=== PATIENT | male | born 1945 | race Caucasian/White ===

== ENCOUNTER 2022-03-26 04:06 | Inpatient (IN) | payer MEDICARE, OTHER ==
[~2022-03-26] VITALS: Ht 170.2 cm; Wt 76.7 kg
[2022-03-26] MEDS ORDERED: FUROSEMIDE 40MG/4ML VIAL IV ONE (04:30)
[2022-03-26 04:58] LABS: BASOPHILS % 0.7 % (0.0-2.0); HEMATOCRIT. 27.6 % (42.0-52.0); HEMOGLOBIN. 9.2 g/dL (14.0-18.0); LYMPHOCYTES % 9.2 % (20.0-50.0); MEAN CORPUSCULAR HEMOGLOBIN 28.1 pg (28.0-32.0); MEAN CORPUSCULAR VOLUME 84.2 fL (80.0-94.0); MEAN PLATELET VOLUME 8.9 fl (7.4-10.4); NEUTROPHILS % 78.1 % (40.0-76.0); PLATELET 187 x1000/uL (130-400); RED BLOOD CELL COUNT 3.28 mill/uL (4.7-6.1); RED CELL DISTRIBUTION WIDTH 14.8 % (11.6-14.6)
[2022-03-26 05:07] LABS: CHLORIDE 109 mEq/L (98-107)
[2022-03-26 10:30] VITALS: BP 155/6
[2022-03-26] MEDS ORDERED: DEXTROSE 50% WATER 50ML SYRINGE IV PRN (11:15)
[2022-03-26] MEDS ORDERED: ACETAMINOPHEN 325MG TABLET PO PRN (11:15)
[2022-03-26] MEDS ORDERED: LOSARTAN POTASSIUM 25 MG TABLET PO SCH (11:15)
[2022-03-26] MEDS ORDERED: ONDANSETRON HCL 4MG/2ML INJ IV PRN (11:15)
[2022-03-26] MEDS ORDERED: MAGNESIUM/ALUMINUM HYDROXIDE/SIMETHICONE 30ML UDC PO PRN (11:15)
[2022-03-26] MEDS ORDERED: IPRATROPIUM/ALBUTEROL 0.5-3(2.5)MG/3ML NEB HHN PRN (11:15)
[2022-03-26] MEDS ORDERED: DIPHENHYDRAMINE 50MG/ML VIAL IV PRN (11:15)
[2022-03-26 12:00] VITALS: BP 155/61
[2022-03-26] MEDS ORDERED: ENOXAPARIN 40MG/0.4ML SYR SUBCUT SCH (12:00)
[2022-03-26] MEDS: BLOOD SUGAR DIAGNOSTIC STRIP TEST SCH ×3 (12:59→21:27)
[2022-03-26] MEDS: INSULIN LISPRO 100 UNITS/ML SUBCUT SCH ×3 (12:59→21:27)
[2022-03-26] MEDS: FUROSEMIDE 40MG/4ML VIAL IVP SCH ×2 (13:15→17:13)
[2022-03-26] MEDS: SODIUM CHLORIDE 0.9% INJ 3ML FLUSH IVF SCH ×2 (13:16→21:27)
[2022-03-26] MEDS: ASPIRIN 81MG EC TABLET PO SCH (13:16)
[2022-03-26] MEDS: METOPROLOL TARTRATE 25MG TABLET PO SCH ×2 (13:16→21:26)
[2022-03-26] MEDS ORDERED: ATOR20TA65 PO (15:28)
[2022-03-26] MEDS ORDERED: DOCU50LI25 PO (15:28)
[2022-03-26] MEDS ORDERED: FURO40TA5 PO (15:28)
[2022-03-26] MEDS ORDERED: DOXA1TAB2 MT (15:28)
[2022-03-26] MEDS ORDERED: HALO1TAB MT (15:28)
[2022-03-26 16:00] VITALS: BP 127/58
[2022-03-26 17:09] LABS: CLARITY URINE CLEAR (CLEAR); COLOR URINE YELLOW (YELLOW); KETONES URINE NEGATIVE (NEGATIVE); LEUKOCYTE ESTERASE URINE NEGATIVE (NEGATIVE); NITRITE URINE NEGATIVE (NEGATIVE); OCCULT BLOOD URINE NEGATIVE (NEGATIVE); PROTEIN URINE 2+ (NEGATIVE); SPECIFIC GRAVITY URINE 1.009 (1.005-1.030); UROBILINOGEN URINE 0.2 E.U./dL (0.2-1.0)
[2022-03-26 17:24] LABS: *AMPHETAMINES SCREEN URINE NEGATIVE (NEGATIVE); *BARBITURATES SCREEN URINE NEGATIVE (NEGATIVE); *BENZODIAZEPINES SCREEN URINE NEGATIVE (NEGATIVE); *COCAINE SCREEN URINE NEGATIVE (NEGATIVE); CANNABINOID URINE SCREEN NEGATIVE (NEGATIVE); METHADONE URINE SCREEN NEGATIVE (NEGATIVE); OPIATES URINE SCREEN NEGATIVE (NEGATIVE); PHENCYCLIDINE URINE SCREEN NEGATIVE (NEGATIVE)
[2022-03-26 17:53] LABS: TOTAL IRON BINDING CAPACITY 250 ug/dL (250-450)
[2022-03-26 18:19] LABS: VITAMIN B12 SERUM 1395 pg/mL (211-911)
[2022-03-26 19:22] LABS: CREATINE KINASE 120 IU/L (39-308)
[2022-03-26 20:00] VITALS: BP 147/78
[2022-03-26] MEDS ORDERED: ZOLPIDEM TARTRATE 5MG TABLET PO PRN (21:00)
[2022-03-26] MEDS: ACETAMINOPHEN 325MG TABLET PO PRN (21:26)
[2022-03-27] VITALS (31 sets, daily range): BP systolic 123–183; BP diastolic 58–101
[2022-03-27] MEDS: CLONIDINE 0.1MG TABLET PO PRN ×2 (00:28→06:16)
[2022-03-27] MEDS: FUROSEMIDE 40MG/4ML VIAL IVP SCH ×2 (06:15→18:54)
[2022-03-27] MEDS: BLOOD SUGAR DIAGNOSTIC STRIP TEST SCH ×4 (06:16→20:57)
[2022-03-27 07:59] LABS: EOSINOPHILS % 2.9 % (0.0-5.0); HEMATOCRIT. 27.8 % (42.0-52.0); HEMOGLOBIN. 9.4 g/dL (14.0-18.0); LYMPHOCYTES % 9.4 % (20.0-50.0); MEAN CORPUSCULAR HEMOGLOBIN 28.6 pg (28.0-32.0); MEAN PLATELET VOLUME 9.1 fl (7.4-10.4); MONOCYTES % 7.5 % (2.0-8.0); NEUTROPHILS % 79.2 % (40.0-76.0); PLATELET 198 x1000/uL (130-400); RED CELL DISTRIBUTION WIDTH 14.7 % (11.6-14.6)
[2022-03-27] MEDS: INSULIN LISPRO 100 UNITS/ML SUBCUT SCH ×3 (08:10→20:59)
[2022-03-27] MEDS: SODIUM CHLORIDE 0.9% INJ 3ML FLUSH IVF SCH (08:16)
[2022-03-27] MEDS: ASPIRIN 81MG EC TABLET PO SCH (09:11)
[2022-03-27] MEDS: METOPROLOL TARTRATE 25MG TABLET PO SCH ×2 (09:11→20:56)
[2022-03-27] MEDS ORDERED: POTASSIUM CHLORIDE 20MEQ TABLET SR PO NR (10:45)
[2022-03-27 11:02] LABS: PHOSPHORUS 4.2 mg/dL (2.5-4.9); T4 FREE 1.11 ng/dL (0.76-1.46)
[2022-03-27] MEDS ORDERED: MAGNESIUM 2 G PREMIX 50 ML IV NR (11:07)
[2022-03-27] MEDS ORDERED: IODIXANOL 320MG/ML 100 ML BOTTLE IV ONE ×2 (11:35→12:42)
[2022-03-27] MEDS ORDERED: MIDAZOLAM HCL 2 MG/2 ML VIAL ONE (12:41)
[2022-03-27] MEDS ORDERED: HEPARIN SODIUM 1,000 UNIT/1ML VIAL IV ONE (12:41)
[2022-03-27] MEDS ORDERED: LIDOCAINE HCL/PF 2% 20MG/ML 5 ML/VIAL ONE (12:41)
[2022-03-27] MEDS ORDERED: FENTANYL CITRATE/PF 50MCG/ML 2ML VIAL ONE (12:41)
[2022-03-27] MEDS ORDERED: ATROPINE SULFATE 1MG/10ML SYR IV PRN (13:45)
[2022-03-27] MEDS ORDERED: ACETAMINOPHEN 325MG TABLET PO PRN (13:45)
[2022-03-27] MEDS ORDERED: IOHEXOL-300 100 ML BOTTLE ONE (16:22)
[2022-03-27 17:33] LABS: PROTHROMBIN TIME 10.9 sec (9.6-11.0)
[2022-03-28] VITALS (43 sets, daily range): BP systolic 100–177; BP diastolic 31–103
[2022-03-28 05:27] LABS: BASOPHILS % 0.8 % (0.0-2.0); EOSINOPHILS % 2.3 % (0.0-5.0); LYMPHOCYTES % 14.4 % (20.0-50.0); MEAN CORPUSCULAR HEMOGLOBIN 27.6 pg (28.0-32.0); MEAN CORPUSCULAR VOLUME 82.6 fL (80.0-94.0); MEAN PLATELET VOLUME 9.2 fl (7.4-10.4); MONOCYTES % 13.6 % (2.0-8.0); NEUTROPHILS % 68.9 % (40.0-76.0); PLATELET 217 x1000/uL (130-400); RED BLOOD CELL COUNT 3.99 mill/uL (4.7-6.1); RED CELL DISTRIBUTION WIDTH 14.9 % (11.6-14.6)
[2022-03-28] MEDS: BLOOD SUGAR DIAGNOSTIC STRIP TEST SCH ×4 (05:45→22:01)
[2022-03-28] MEDS: FUROSEMIDE 40MG/4ML VIAL IVP SCH ×2 (05:50→17:25)
[2022-03-28] MEDS ORDERED: POTASSIUM CHLORIDE 20MEQ TABLET SR PO NR (06:00)
[2022-03-28] MEDS: INSULIN LISPRO 100 UNITS/ML SUBCUT SCH ×4 (06:03→22:17)
[2022-03-28] MEDS: ASPIRIN 81MG EC TABLET PO SCH (08:08)
[2022-03-28] MEDS: METOPROLOL TARTRATE 25MG TABLET PO SCH ×2 (08:09→21:00)
[2022-03-28] MEDS ORDERED: ENOXAPARIN 30MG/0.3ML SYR SUBCUT SCH (09:00)
[2022-03-28] MEDS ORDERED: POTASSIUM CHLORIDE 20MEQ/PACKET PO NR (09:45)
[2022-03-28] MEDS ORDERED: DEXAMETHASONE 4MG/ML 1ML VIAL ONE (09:56)
[2022-03-28] MEDS ORDERED: CEFAZOLIN SODIUM 1000MG/VIAL ONE (09:56)
[2022-03-28] MEDS ORDERED: PROPOFOL 200MG/20ML VIAL IV ONE (09:56)
[2022-03-28] MEDS ORDERED: ONDANSETRON HCL 4MG/2ML INJ ONE (09:56)
[2022-03-28] MEDS ORDERED: MIDAZOLAM HCL 2 MG/2 ML VIAL ONE (09:57)
[2022-03-28] MEDS ORDERED: POTASSIUM CHLORIDE INJ 40 MEQ in DEXT 5% WATER 250 ML IV ONE (10:00)
[2022-03-28] MEDS ORDERED: FENTANYL CITRATE/PF 50MCG/ML 2ML VIAL ONE (10:18)
[2022-03-28] MEDS: KCL 20MEQ/100ML X 2 FOR TOTAL KCL 40MEQ/200ML IV SCH ×2 (10:37→14:45)
[2022-03-28] MEDS ORDERED: GENTAMICIN/NS IRRIGATION 500 ML IR ONE (11:02)
[2022-03-28] MEDS ORDERED: IODIXANOL 320MG/ML 100 ML BOTTLE IV ONE (11:12)
[2022-03-28] MEDS ORDERED: GENTAMICIN SULF 40MG/ML 2ML VIAL ONE (11:12)
[2022-03-28] MEDS ORDERED: LIDOCAINE HCL 1% 20ML VIAL (Pyxis) INJ ONE (11:54)
[2022-03-28] MEDS: HYDROCODONE/ACETAMINOPHEN 5/325MG TABLET PO PRN (17:34)
[2022-03-28] MEDS: CLONIDINE 0.1MG TABLET PO PRN (18:13)
[2022-03-29] VITALS (12 sets, daily range): BP systolic 108–140; BP diastolic 68–104
[2022-03-29] MEDS: BLOOD SUGAR DIAGNOSTIC STRIP TEST SCH ×4 (05:40→20:46)
[2022-03-29] MEDS: FUROSEMIDE 40MG/4ML VIAL IVP SCH ×2 (05:46→18:16)
[2022-03-29 06:45] LABS: BASOPHILS % 0.8 % (0.0-2.0); EOSINOPHILS % 1.1 % (0.0-5.0); HEMATOCRIT. 29.2 % (42.0-52.0); HEMOGLOBIN. 9.9 g/dL (14.0-18.0); LYMPHOCYTES % 14.8 % (20.0-50.0); MEAN CORPUSCULAR VOLUME 82.7 fL (80.0-94.0); MEAN PLATELET VOLUME 9.5 fl (7.4-10.4); MONOCYTES % 12.9 % (2.0-8.0); NEUTROPHILS % 70.4 % (40.0-76.0); PLATELET 186 x1000/uL (130-400); RED BLOOD CELL COUNT 3.53 mill/uL (4.7-6.1); RED CELL DISTRIBUTION WIDTH 14.8 % (11.6-14.6)
[2022-03-29 07:01] LABS: PHOSPHORUS 3.3 mg/dL (2.5-4.9)
[2022-03-29] MEDS: INSULIN LISPRO 100 UNITS/ML SUBCUT SCH ×4 (07:20→21:00)
[2022-03-29] MEDS: ASPIRIN 81MG EC TABLET PO SCH (08:49)
[2022-03-29] MEDS: METOPROLOL TARTRATE 25MG TABLET PO SCH ×2 (08:50→21:03)
[2022-03-29 14:57] LABS: HEPATITIS B SURFACE ANTIGEN NEGATIVE
[2022-03-29] MEDS ORDERED: NALOXONE HCL 0.4MG/ML VIAL IV PRN (17:00)
[2022-03-29] MEDS: HYDROCODONE/ACETAMINOPHEN 5/325MG TABLET PO PRN (18:32)
[2022-03-29] MEDS ORDERED: HYDROCODONE/ACETAMINOPHEN 5/325MG TABLET PO PRN (20:00)
[2022-03-29] MEDS ORDERED: ZOLPIDEM TARTRATE 5MG TABLET PO SCH (21:00)
[2022-03-30] VITALS (11 sets, daily range): BP systolic 128–158; BP diastolic 59–96
[2022-03-30] MEDS: BLOOD SUGAR DIAGNOSTIC STRIP TEST SCH ×4 (06:12→20:24)
[2022-03-30] MEDS: FUROSEMIDE 40MG/4ML VIAL IVP SCH ×2 (06:18→17:46)
[2022-03-30] MEDS: INSULIN LISPRO 100 UNITS/ML SUBCUT SCH ×4 (07:20→20:24)
[2022-03-30] MEDS: METOPROLOL TARTRATE 25MG TABLET PO SCH ×2 (08:50→20:21)
[2022-03-30] MEDS: ASPIRIN 81MG EC TABLET PO SCH (08:50)
[2022-03-30] MEDS: HYDROCODONE/ACETAMINOPHEN 5/325MG TABLET PO PRN ×2 (09:48→20:21)
[2022-03-30] MEDS: ZOLPIDEM TARTRATE 5MG TABLET PO SCH (20:23)
[2022-03-31] VITALS (10 sets, daily range): BP systolic 121–153; BP diastolic 71–91
[2022-03-31 05:22] LABS: BASOPHILS % 0.5 % (0.0-2.0); EOSINOPHILS % 2.9 % (0.0-5.0); HEMATOCRIT. 31.6 % (42.0-52.0); HEMOGLOBIN. 10.5 g/dL (14.0-18.0); LYMPHOCYTES % 11.1 % (20.0-50.0); MEAN CORPUSCULAR HEMOGLOBIN 27.6 pg (28.0-32.0); MEAN CORPUSCULAR VOLUME 83.2 fL (80.0-94.0); MEAN PLATELET VOLUME 9.5 fl (7.4-10.4); MONOCYTES % 11.3 % (2.0-8.0); NEUTROPHILS % 74.2 % (40.0-76.0); PLATELET 180 x1000/uL (130-400); RED BLOOD CELL COUNT 3.79 mill/uL (4.7-6.1); RED CELL DISTRIBUTION WIDTH 14.6 % (11.6-14.6)
[2022-03-31] MEDS: FUROSEMIDE 40MG/4ML VIAL IVP SCH ×2 (05:50→17:25)
[2022-03-31] MEDS: BLOOD SUGAR DIAGNOSTIC STRIP TEST SCH ×4 (05:50→21:05)
[2022-03-31] MEDS: INSULIN LISPRO 100 UNITS/ML SUBCUT SCH ×4 (07:20→21:00)
[2022-03-31] MEDS ORDERED: POTASSIUM CHLORIDE 20MEQ TABLET SR PO SCH (07:45)
[2022-03-31] MEDS: METOPROLOL TARTRATE 25MG TABLET PO SCH ×2 (08:22→20:39)
[2022-03-31] MEDS: ASPIRIN 81MG EC TABLET PO SCH (08:22)
[2022-03-31 10:06] LABS: ANTI-NUCLEAR ANTIBODIES DIRECT Negative (Negative)
[2022-03-31] MEDS ORDERED: POTASSIUM CHLORIDE 20MEQ/PACKET PO NR (10:30)
[2022-03-31] MEDS: ZOLPIDEM TARTRATE 5MG TABLET PO SCH (20:39)
[2022-04-01] VITALS (7 sets, daily range): BP systolic 118–153; BP diastolic 49–87
[2022-04-01] MEDS: FUROSEMIDE 40MG/4ML VIAL IVP SCH ×2 (05:04→17:33)
[2022-04-01] MEDS: BLOOD SUGAR DIAGNOSTIC STRIP TEST SCH ×3 (06:25→16:09)
[2022-04-01] MEDS: INSULIN LISPRO 100 UNITS/ML SUBCUT SCH ×3 (07:20→17:44)
[2022-04-01] MEDS: METOPROLOL TARTRATE 25MG TABLET PO SCH (08:16)
[2022-04-01] MEDS: HYDROCODONE/ACETAMINOPHEN 5/325MG TABLET PO PRN (08:16)
[2022-04-01] MEDS: ASPIRIN 81MG EC TABLET PO SCH (08:16)
[2022-04-01] MEDS ORDERED: POTASSIUM CHLORIDE 20MEQ TABLET SR PO SCH (09:00)
[2022-04-01] MEDS ORDERED: DOCUSATE SODIUM 100MG CAPSULE PO SCH (16:45)
[2022-04-01] MEDS: ACETAMINOPHEN 325MG TABLET PO PRN (17:34)
[2022-04-01] MEDS ORDERED: ATORVASTATIN CALCIUM 20MG TABLET PO SCH (21:00)
[2022-04-01] MEDS ORDERED: CARVEDILOL 6.25 MG TABLET PO SCH (21:00)
[2022-04-01] MEDS ORDERED: ENOXAPARIN 30MG/0.3ML SYR SUBCUT SCH (21:00)
== END 2022-04-01 19:30 | DRG 224 ==
LOC: ER 04:16 → 7WST 05:22 → EDBEDREQ 05:31 → EDBEDREQTM 05:31 → ENRESERV 09:12 → MICUNO 03-27 11:00 → 3WST 03-28 20:30
PROVIDERS: ADMIT Internal Medicine; ATTEND Internal Medicine
PROC: 4A023N7 Measurement of Cardiac Sampling and Pressure, Left Heart, Percutaneous Approach (ICD-10-PCS; 2022-03-27)
PROC: 02H633Z Insertion of Infusion Device into Right Atrium, Percutaneous Approach (ICD-10-PCS; 2022-03-27)
PROC: B548ZZA Ultrasonography of Superior Vena Cava, Guidance (ICD-10-PCS; 2022-03-27)
PROC: 5A1D70Z Performance of Urinary Filtration, Intermittent, Less than 6 Hours Per Day (ICD-10-PCS; 2022-03-27)
PROC: B2111ZZ Fluoroscopy of Multiple Coronary Arteries using Low Osmolar Contrast (ICD-10-PCS; 2022-03-27)
PROC: B2151ZZ Fluoroscopy of Left Heart using Low Osmolar Contrast (ICD-10-PCS; 2022-03-27)
PROC: 0JH608Z Insertion of Defibrillator Generator into Chest Subcutaneous Tissue and Fascia, Open Approach (ICD-10-PCS; principal; 2022-03-28)
PROC: 02HK3KZ Insertion of Defibrillator Lead into Right Ventricle, Percutaneous Approach (ICD-10-PCS; 2022-03-28)
DX: I49.01 Ventricular fibrillation (principal); I21.4 Non-ST elevation (NSTEMI) myocardial infarction; J96.01 Acute respiratory failure with hypoxia; I50.23 Acute on chronic systolic (congestive) heart failure; N17.9 Acute kidney failure, unspecified; I13.0 Hypertensive heart and chronic kidney disease with heart failure and stage 1 through stage 4 chronic kidney disease, or unspecified chronic kidney disease; N18.4 Chronic kidney disease, stage 4 (severe); Z20.822 Contact with and (suspected) exposure to COVID-19; I49.02 Ventricular flutter; I25.10 Atherosclerotic heart disease of native coronary artery without angina pectoris; I47.21 Torsades de pointes; E78.5 Hyperlipidemia, unspecified; E11.22 Type 2 diabetes mellitus with diabetic chronic kidney disease; E87.6 Hypokalemia; I49.9 Cardiac arrhythmia, unspecified; I25.5 Ischemic cardiomyopathy; D63.1 Anemia in chronic kidney disease; D72.829 Elevated white blood cell count, unspecified; I25.2 Old myocardial infarction; Z82.49 Family history of ischemic heart disease and other diseases of the circulatory system; Z95.5 Presence of coronary angioplasty implant and graft; Z95.810 Presence of automatic (implantable) cardiac defibrillator
CPT/HCPCS: 33249; 36415; 36556; 71045; 74018; 76770; 76937; 80048; 80053; 80061; 80305; 81003; 82550; 82575; 82607; 82962; 83036; 83540; 83550; 83605; 83735; 83880; 84100; 84439; 84443; 84481; 84484; 85025; 85044; 86038; 86160; 86705; 86706; 86709; 86803; 87340; 87426; 93005; 93306; 93458; 93641; 93970; 97162; 99291; A4565; C1722; C1752; C1769; C1887; C1893; C1899; C9803; J0690; J1100; J1580; J1644; J1650; J1815; J1940; J2250; J2405; J2704; J3010; J3475; J3480; J3490; Q9967

== ENCOUNTER 2022-05-17 14:50 | Emergency (ER) | payer MEDICARE, OTHER ==
[~2022-05-17] VITALS: Ht 170.2 cm; Wt 80.0 kg
[~2022-05-17 14:50] MED LIST: ATOR20TA65 PO; DOCU50LI25 PO; DOXA1TAB2 MT; FURO40TA5 PO; HALO1TAB MT
[2022-05-17 15:00] VITALS: BP 127/56
[2022-05-17 20:01] LABS: BASOPHILS % 1.1 % (0.0-2.0); EOSINOPHILS % 7.9 % (0.0-5.0); HEMATOCRIT. 22.6 % (42.0-52.0); HEMOGLOBIN. 7.7 g/dL (14.0-18.0); LYMPHOCYTES % 10.9 % (20.0-50.0); MEAN CORPUSCULAR HEMOGLOBIN 28.5 pg (28.0-32.0); MEAN CORPUSCULAR VOLUME 83.5 fL (80.0-94.0); MEAN PLATELET VOLUME 9.5 fl (7.4-10.4); MONOCYTES % 13.4 % (2.0-8.0); NEUTROPHILS % 66.7 % (40.0-76.0); PLATELET 202 x1000/uL (130-400); RED CELL DISTRIBUTION WIDTH 17.4 % (11.6-14.6)
[2022-05-17 20:03] LABS: CHLORIDE 103 mEq/L (98-107)
== END 2022-05-17 21:38 | disposition left against medical advice (07) ==
LOC: ER 14:50 → CANBEDREQ 05-18 01:12
DX: I11.0 Hypertensive heart disease with heart failure (principal); I50.9 Heart failure, unspecified; N17.9 Acute kidney failure, unspecified; D64.9 Anemia, unspecified; E11.9 Type 2 diabetes mellitus without complications; Z95.810 Presence of automatic (implantable) cardiac defibrillator
CPT/HCPCS: 36415; 71045; 80053; 83880; 84484; 85025; 93005; 99285